=== PATIENT | female | born 1985 | race Caucasian/White ===

== ENCOUNTER 2019-01-15 16:25 | Inpatient (IN) | payer MEDICAID ==
[~2019-01-15] VITALS: Ht 177.8 cm; Wt 109.1 kg
[2019-01-15 16:25] VITALS: BP 144/78
[~2019-01-15 16:25] MED LIST: DOCU-131 PO; IBUP-1222 PO; OXYC-302 PO; PREN1TAB60 PO
[2019-01-15] MEDS ORDERED: OXYTOCIN 30U/ 0.9% NaCL 500ML 500 ML IV ONE (16:35)
[2019-01-15] MEDS: LACTATED RINGERS 1,000 ML IV SCH (16:40)
[2019-01-15] MEDS ORDERED: OXYTOCIN 30U/ 0.9% NaCL 500ML 500 ML ONE ×2 (16:41→18:24)
[2019-01-15] MEDS ORDERED: MISOPROSTOL 200 MCG TABLET ONE (16:41)
[2019-01-15] MEDS ORDERED: NEWBORN KIT ONE (16:41)
[2019-01-15] MEDS ORDERED: LIDOCAINE 1%, 20ML ONE (16:41)
[2019-01-15] MEDS ORDERED: TERBUTALINE 1 MG/ML, 1ML IVPush PRN (17:00)
[2019-01-15] MEDS ORDERED: ONDANSETRON 2MG/ML, 2ML IVPush PRN (17:00)
[2019-01-15] MEDS ORDERED: FENTANYL PF 100 MCG/2ML IV PRN (17:00)
[2019-01-15] MEDS ORDERED: CALCIUM CARBONATE 500 MG TAB.CHEW PO PRN (17:00)
[2019-01-15] MEDS ORDERED: FENTANYL PF 100 MCG/2ML ONE (17:14)
[2019-01-15] MEDS ORDERED: IBUPROFEN 600 MG TABLET ONE (18:15)
[2019-01-15] MEDS ORDERED: OXYcodone/APAP 5/325MG TABLET ONE (18:15)
[2019-01-15] MEDS: IBUPROFEN 600 MG TABLET PO PRN (18:19)
[2019-01-15] MEDS: OXYcodone/APAP 5/325MG TABLET PO PRN ×2 (18:19→22:14)
[2019-01-15] MEDS: OXYTOCIN 30U/ 0.9% NaCL 500ML 500 ML IV SCH (18:29)
[2019-01-15 18:42] LABS: MEAN CORPUSCULAR HEMOGLOBIN 29.9 pg (27.0-34.8); MEAN CORPUSCULAR HGB CONC 33.2 g/dL (32.4-35.8); MEAN CORPUSCULAR VOLUME 90.1 fL (80-100); MEAN PLATELET VOLUME 7.7 fL (7.4-10.4); PLATELET COUNT 310 x10^3/uL (130-400); RED BLOOD COUNT 4.47 x10^6/uL (3.82-5.3); RED CELL DISTRIBUTION WIDTH 14.2 % (9.6-15.2)
[2019-01-15 19:12] LABS: BASOPHILS # (AUTO) 0.04 x10^3/uL (0-0.1); BASOPHILS % (AUTO) 0 % (0-1); EOSINOPHILS # (AUTO) 0.07 x10^3/uL (0-0.4); EOSINOPHILS % (AUTO) 0 % (1-7); LYMPHOCYTES % (AUTO) 5 % (22-44); MD SCAN; MONOCYTES # (AUTO) 0.65 x10^3/uL (0.2-0.8); MONOCYTES % (AUTO) 3 % (2-9); NEUTROPHILS % (AUTO) 91 % (42-75)
[2019-01-15] MEDS ORDERED: FENTANYL PF 100 MCG/2ML IVPush PRN (20:00)
[2019-01-15] MEDS ORDERED: DOCUSATE 100 MG CAPSULE PO PRN (20:00)
[2019-01-15] MEDS ORDERED: MISOPROSTOL 200 MCG TABLET PR PRN (20:00)
[2019-01-15] MEDS ORDERED: HYDROcodone/APAP 5/325 TABLET PO PRN ×2 (20:00)
[2019-01-15 20:15] VITALS: BP 118/67
[2019-01-16] VITALS: BP 101/69
[2019-01-16] MEDS: IBUPROFEN 600 MG TABLET PO PRN ×3 (00:04→12:58)
[2019-01-16] MEDS: LACTATED RINGERS 1,000 ML IV SCH (00:35)
[2019-01-16] MEDS: OXYcodone/APAP 5/325MG TABLET PO PRN ×3 (03:58→12:58)
[2019-01-16 04:00] VITALS: BP 121/68
[2019-01-16 05:23] LABS: BASOPHILS # (AUTO) 0.07 x10^3/uL (0-0.1); BASOPHILS % (AUTO) 0 % (0-1); EOSINOPHILS # (AUTO) 0.14 x10^3/uL (0-0.4); EOSINOPHILS % (AUTO) 1 % (1-7); LYMPHOCYTES % (AUTO) 12 % (22-44); MD NO; MEAN CORPUSCULAR HEMOGLOBIN 29.3 pg (27.0-34.8); MEAN PLATELET VOLUME 7.4 fL (7.4-10.4); MONOCYTES # (AUTO) 1.06 x10^3/uL (0.2-0.8); MONOCYTES % (AUTO) 6 % (2-9); NEUTROPHILS # (AUTO) 13.53 x10^3/uL (1.8-6.8); NEUTROPHILS % (AUTO) 81 % (42-75); PLATELET COUNT 273 x10^3/uL (130-400); RED CELL DISTRIBUTION WIDTH 13.8 % (9.6-15.2)
[2019-01-16] MEDS: OXYTOCIN 30U/ 0.9% NaCL 500ML 500 ML IV SCH ×2 (05:44→15:44)
[2019-01-16] MEDS ORDERED: RHOGAM FROM BLOOD BANK 1 NOTE EA IM/IV ONE (07:00)
[2019-01-16 07:30] VITALS: BP 108/69
[2019-01-16] MEDS ORDERED: PRENATAL VIT/IRON/FA 1 EACH TABLET PO SCH (09:00)
[2019-01-16 12:41] VITALS: BP 111/72
[2019-01-16] MEDS ORDERED: IBUP-1222 PO (15:43)
[2019-01-16 16:30] VITALS: BP 97/62
== END 2019-01-16 17:33 | disposition home or self-care (01) | DRG 807 ==
LOC: LDOP 16:25 → LDIP 16:42 → 2NW 20:05
PROVIDERS: ADMIT Obstetrics & Gynecology; ATTEND Obstetrics & Gynecology
PROC: 10E0XZZ Delivery of Products of Conception, External Approach (ICD-10-PCS; principal; 2019-01-15)
PROC: 0KQM0ZZ Repair Perineum Muscle, Open Approach (ICD-10-PCS; 2019-01-15)
DX: O99.354 Diseases of the nervous system complicating childbirth (principal); Z37.0 Single live birth; O99.62 Diseases of the digestive system complicating childbirth; Z3A.40 40 weeks gestation of pregnancy; Z80.0 Family history of malignant neoplasm of digestive organs; O70.1 Second degree perineal laceration during delivery; Z83.3 Family history of diabetes mellitus; Z80.3 Family history of malignant neoplasm of breast; Z83.79 Family history of other diseases of the digestive system; K90.0 Celiac disease; G43.909 Migraine, unspecified, not intractable, without status migrainosus
CPT/HCPCS: 36415; 85025; 85461; 86850; 86900; G0378; J2790; J3010; J2590; J7120

== ENCOUNTER 2020-05-26 06:23 | Day surgery (SDC) | payer MEDICAID ==
[~2020-05-26] VITALS: Ht 175.3 cm; Wt 94.4 kg
[~2020-05-26 06:23] MED LIST changes: +ENOX100S4 SQ; +FAMO20TA7 PO; +FERR-51 PO
[2020-05-26] MEDS ORDERED: FAMO-79 PO (07:10)
[2020-05-26] MEDS ORDERED: FERR324T5 PO (07:10)
[2020-05-26] MEDS ORDERED: ENOX100S5 SQ (07:10)
[2020-05-26] MEDS ORDERED: ACET-1600 PO (07:11)
[2020-05-26 07:19] VITALS: BP 109/73
[2020-05-26 07:49] LABS: BASOPHILS % (AUTO) 0 % (0-1); EOSINOPHILS % (AUTO) 4 % (1-7); LYMPHOCYTES % (AUTO) 13 % (22-44); MEAN CORPUSCULAR HEMOGLOBIN 25.9 pg (27.0-34.8); MEAN CORPUSCULAR HGB CONC 32.6 g/dL (32.4-35.8); MEAN PLATELET VOLUME 7.3 fL (7.4-10.4); MONOCYTES % (AUTO) 5 % (2-9); NEUTROPHILS % (AUTO) 78 % (42-75); PLATELET COUNT 455 x10^3/uL (130-400); RED BLOOD COUNT 4.56 x10^6/uL (3.82-5.3); RED CELL DISTRIBUTION WIDTH 14.6 % (9.6-15.2)
[2020-05-26 08:16] LABS: MD SCAN
== END 2020-05-26 10:32 | disposition home or self-care (01) ==
LOC: OUT 06:23 → EDSTATUS 09:00 → OUT 10:32
PROVIDERS: ATTEND Internal Medicine Hematology & Oncology
DX: C85.90 Non-Hodgkin lymphoma, unspecified, unspecified site (principal); D69.6 Thrombocytopenia, unspecified; Z86.718 Personal history of other venous thrombosis and embolism; Z88.0 Allergy status to penicillin; Z91.040 Latex allergy status
CPT/HCPCS: 36415; 36573; 38222; 77012; 85025; 85060; 85097; 88237; 88264; 88280; 88305; 88311; 88313; 99156; 99157; C1751; J2250; J3010; J2310

== ENCOUNTER → 2020-06-04 | Outpatient (CLI) | payer MEDICAID ==
[~2020-06-04] MED LIST changes: +ACET-1600 PO; +ENOX100S5 SQ; +FAMO-79 PO; +FERR324T5 PO
== END | disposition home or self-care (01) ==
LOC: PETCFH 07:48
PROVIDERS: ATTEND Internal Medicine Hematology & Oncology
DX: C81.90 Hodgkin lymphoma, unspecified, unspecified site (principal); J98.59 Other diseases of mediastinum, not elsewhere classified
CPT/HCPCS: 78815; A9552

== ENCOUNTER → 2020-06-06 | Outpatient (CLI) | payer MEDICAID | END | disposition home or self-care (01) | LOC: CVU 11:38 | PROVIDERS: ATTEND Internal Medicine Hematology & Oncology | DX: C81.90 Hodgkin lymphoma, unspecified, unspecified site (principal); C85.90 Non-Hodgkin lymphoma, unspecified, unspecified site | CPT/HCPCS: 93306 ==

== ENCOUNTER → 2020-06-10 | Outpatient (CLI) | payer MEDICAID ==
[~2020-06-10] MED LIST changes: +APIX5TAB PO; +LACT1CAP11 PO; +LORA-445 PO; +ONDA4TAB7 PO; +POLY17PO5 PO
== END | disposition home or self-care (01) ==
LOC: CARD 15:24
PROVIDERS: ATTEND Internal Medicine Hematology & Oncology
DX: C85.90 Non-Hodgkin lymphoma, unspecified, unspecified site (principal); C81.90 Hodgkin lymphoma, unspecified, unspecified site
CPT/HCPCS: 94010; 94726; 94729

== ENCOUNTER 2020-06-11 14:11 | Emergency (ER) | payer MEDICAID ==
[~2020-06-11] VITALS: Ht 172.7 cm; Wt 98.7 kg
[~2020-06-11 14:11] MED LIST changes: -APIX5TAB PO; -LACT1CAP11 PO; -LORA-445 PO; -ONDA4TAB7 PO; -POLY17PO5 PO
--- NOTE | 2020-06-11 14:50 | NUR ---
US AT BEDSIDE
--- NOTE | 2020-06-11 14:52 | NUR ---
REPORT FROM BREAK NURSE IRBY. ASSUMED CARE OF PT.
--- NOTE | 2020-06-11 15:00 | NUR ---
PT SITTING UPRIGHT ON ON GURNEY WITH AT BEDSIDE. VSS, NAD. PT DENIES ANY NEEDS AT THIS TIME. CALL LIGHT AND PERSONAL BELONGINGS WITHIN REACH.
--- NOTE | 2020-06-11 16:02 | NUR ---
PT SITTING UPRIGHT ON ON GURNEY WITH AT BEDSIDE. VSS, NAD. PT DENIES ANY NEEDS AT THIS TIME. CALL LIGHT AND PERSONAL BELONGINGS WITHIN REACH.
[2020-06-11 16:20] LABS: BASOPHILS % (AUTO) 0 % (0-1); EOSINOPHILS % (AUTO) 0 % (1-7); LYMPHOCYTES % (AUTO) 10 % (22-44); MEAN CORPUSCULAR HEMOGLOBIN 25.2 pg (27.0-34.8); MEAN CORPUSCULAR HGB CONC 32.1 g/dL (32.4-35.8); MEAN PLATELET VOLUME 8.1 fL (7.4-10.4); MONOCYTES % (AUTO) 6 % (2-9); NEUTROPHILS % (AUTO) 84 % (42-75); PLATELET COUNT 361 x10^3/uL (130-400)
[2020-06-11 16:21] LABS: ALANINE AMINOTRANSFERASE 36 U/L (12-78); ALBUMIN 3.5 g/dL (3.4-5.0); ANION GAP 6 mmol/L (5-15); CHLORIDE 108 mmol/L (98-107)
[2020-06-11 16:23] LABS: MD NO
[2020-06-11 16:25] LABS: ALKALINE PHOSPHATASE 131 U/L (45-117); BILIRUBIN,TOTAL 0.2 mg/dL (0.2-1.0); TOTAL PROTEIN 7.8 g/dL (6.4-8.2)
[2020-06-11] MEDS ORDERED: ONDA4TAB7 PO (16:26)
[2020-06-11] MEDS ORDERED: POLY17PO5 PO (16:26)
[2020-06-11] MEDS ORDERED: APIX5TAB PO (16:26)
[2020-06-11] MEDS ORDERED: LORA-445 PO (16:26)
[2020-06-11] MEDS ORDERED: LACT1CAP11 PO (16:26)
--- NOTE | 2020-06-11 17:05 | NUR ---
Patient given discharge instructions and they have confirmed that they understand the instructions. Patient ambulatory with steady gait.
[2020-06-11 17:06] VITALS: BP 117/62
== END 2020-06-11 17:08 | disposition home or self-care (01) ==
LOC: ED 16:03
DX: I82.A12 Acute embolism and thrombosis of left axillary vein (principal); I82.B12 Acute embolism and thrombosis of left subclavian vein; Z86.718 Personal history of other venous thrombosis and embolism
CPT/HCPCS: 36415; 71045; 80053; 84703; 85025; 99285

== ENCOUNTER 2020-10-10 08:15 | Inpatient (IN) | payer MEDICAID, OTHER ==
[2020-10-09 11:15] LABS: BASOPHILS % (AUTO) 1 % (0-1); EOSINOPHILS % (AUTO) 3 % (1-7); LYMPHOCYTES % (AUTO) 24 % (22-44); MEAN CORPUSCULAR HEMOGLOBIN 29.1 pg (27.0-34.8); MEAN CORPUSCULAR HGB CONC 33.5 g/dL (32.4-35.8); MEAN PLATELET VOLUME 7.1 fL (7.4-10.4); MONOCYTES % (AUTO) 17 % (2-9); NEUTROPHILS % (AUTO) 55 % (42-75); PLATELET COUNT 410 x10^3/uL (130-400); RED BLOOD COUNT 4.43 x10^6/uL (3.82-5.3); RED CELL DISTRIBUTION WIDTH 15.8 % (9.6-15.2)
[2020-10-09 11:27] LABS: ALBUMIN 3.9 g/dL (3.4-5.0); ANION GAP 5 mmol/L (5-15); CALCIUM 9.2 mg/dL (8.5-10.1); CHLORIDE 115 mmol/L (98-107)
[2020-10-09 11:31] LABS: ALANINE AMINOTRANSFERASE 139 U/L (12-78); ALKALINE PHOSPHATASE 75 U/L (45-117); BILIRUBIN,TOTAL 0.3 mg/dL (0.2-1.0); CREATININE 0.72 mg/dL (0.55-1.02); TOTAL PROTEIN 7.6 g/dL (6.4-8.2)
[2020-10-09 12:00] LABS: MD SCAN
[~2020-10-10] VITALS: Ht 172.7 cm; Wt 108.9 kg
[~2020-10-10 08:15] MED LIST changes: +APIX5TAB PO; +BUPIVACAINE/PF-EPI 0.5% 1:200K ONE; +LACT1CAP11 PO; +LORA-445 PO; +MAGNESIUM PO; +MULT-658 PO; +ONDA4TAB7 PO; -OXYC-302 PO; +OXYC1TAB14 PO; +OXYC5CAP2 PO; +POLY17PO5 PO
[2020-10-10] MEDS ORDERED: FAMOTIDINE 20 MG TABLET PO ONE (09:00)
[2020-10-10] MEDS ORDERED: CHLORHEXIDINE 15 ML UDC ONE (09:11)
[2020-10-10 09:25] LABS: HCG UR SG 1.009 (1.003-1.030)
[2020-10-10] MEDS ORDERED: CHLORHEXIDINE 15 ML UDC MM ONE (09:30)
[2020-10-10] MEDS: LACTATED RINGERS 1,000 ML IV SCH ×2 (09:31→22:48)
[2020-10-10] MEDS ORDERED: MIDAZOLAM 1 MG/ML, 2ML ONE (09:46)
[2020-10-10] MEDS ORDERED: FENTANYL PF 100 MCG/2ML ONE ×4 (09:46→12:22)
[2020-10-10] MEDS ORDERED: TALC 4 GM VIAL ONE (10:33)
[2020-10-10] MEDS ORDERED: BUPIVACAINE/PF 0.5% ONE (10:33)
[2020-10-10] MEDS ORDERED: EPINEPHRINE 1 MG/ML, 1ML ONE (10:33)
[2020-10-10] MEDS ORDERED: HYDROcodone/APAP 7.5-325MG/15ML UDC PO PRN (11:30)
[2020-10-10] MEDS ORDERED: KETOROLAC 30 MG/1 ML IVPush PRN (11:30)
[2020-10-10] MEDS ORDERED: MEPERIDINE/PF 25MG/0.5ML IVPush PRN (11:30)
[2020-10-10] MEDS ORDERED: ACETAMINOPHEN 325 MG TABLET PO PRN (11:30)
[2020-10-10] MEDS ORDERED: HYDROmorphone 1 MG/ML, 1ML INJ IVPush PRN (11:30)
[2020-10-10] MEDS ORDERED: OXYcodone 5 MG/5 ML ORAL.SOL UDC PO PRN (11:30)
[2020-10-10] MEDS ORDERED: ONDANSETRON 2MG/ML, 2ML IVPush PRN (11:30)
[2020-10-10] MEDS ORDERED: PROMETHAZINE 25 MG/ML, 1ML IVPush PRN (11:30)
[2020-10-10] MEDS ORDERED: NEOSTIGMINE 1 MG/ML, 10ML ONE (11:49)
[2020-10-10] MEDS ORDERED: GLYCOPYRROLATE 0.2MG/1ML, 5ML ONE (11:49)
[2020-10-10] MEDS ORDERED: SUCCINYLCHOLINE 20 MG/ML, 10ML ONE (11:49)
[2020-10-10] MEDS ORDERED: PROPOFOL 10 MG/ML, 20ML ONE (11:49)
[2020-10-10] MEDS ORDERED: ONDANSETRON 2MG/ML, 2ML ONE (11:49)
[2020-10-10] MEDS ORDERED: CEFAZOLIN 1,000 MG ONE (11:49)
[2020-10-10] MEDS ORDERED: ROCURONIUM 10MG/ML,5ML ONE (11:49)
[2020-10-10] MEDS ORDERED: LORazepam 2 MG/ML, 1ML IV PRN (12:00)
[2020-10-10] MEDS ORDERED: HYDROcodone/APAP 5/325 TABLET PO PRN (12:00)
[2020-10-10] MEDS ORDERED: HYDROmorphone 2 MG/ML, 1ML IVPush PRN (12:00)
[2020-10-10] MEDS ORDERED: DIPHENHYDRAMINE 25 MG CAPSULE PO PRN (12:00)
[2020-10-10] MEDS: FENTANYL PF 100 MCG/2ML IV PRN ×4 (12:00→12:40)
[2020-10-10] MEDS ORDERED: ACETAMINOPHEN 650 MG/20.3 ML UDC ONE (12:03)
[2020-10-10] MEDS ORDERED: OXYcodone 5 MG/5 ML ORAL.SOL UDC ONE (12:04)
[2020-10-10] MEDS ORDERED: HYDROmorphone 1 MG/ML, 1ML INJ ONE (12:54)
[2020-10-10] MEDS ORDERED: ACETAMINOPHEN 500 MG TABLET PO PRN ×2 (15:00→15:30)
[2020-10-10] MEDS ORDERED: DEXAMETHASONE 4 MG/ML, 1ML ONE (15:59)
[2020-10-10] MEDS ORDERED: PHENYLEPHRINE 10 MG/ML ONE (15:59)
[2020-10-10] MEDS: HYDROmorphone 1 MG/ML, 1ML INJ IVPush PRN ×4 (17:47→22:36)
[2020-10-10] MEDS: KETOROLAC 30 MG/1 ML IV PRN (18:48)
[2020-10-10 19:05] VITALS: BP 120/79
[2020-10-10] MEDS: ENOXAPARIN 100 MG/ML SQ SCH (20:04)
[2020-10-10] MEDS: LACTOBACILLUS CHEW TABLET PO SCH (20:04)
[2020-10-10] MEDS ORDERED: Enoxaparin 1 mg/kg protocol SQ SCH (21:00)
[2020-10-10] MEDS: OXYcodone IR 5MG TABLET PO PRN (21:37)
[2020-10-10] MEDS: ONDANSETRON 2MG/ML, 2ML IVPush PRN (21:37)
[2020-10-11] MEDS: HYDROmorphone 1 MG/ML, 1ML INJ IVPush PRN ×9 (01:00→22:37)
[2020-10-11 01:12] VITALS: BP 113/75
[2020-10-11] MEDS: ONDANSETRON 2MG/ML, 2ML IVPush PRN ×2 (03:13→16:26)
[2020-10-11] MEDS ORDERED: CATHFLO-ALTEPLASE 2 MG/2 ML CATHFLUSH ONE ×3 (05:00→17:30)
[2020-10-11 05:57] LABS: BASOPHILS % (AUTO) 1 % (0-1); EOSINOPHILS % (AUTO) 0 % (1-7); LYMPHOCYTES % (AUTO) 9 % (22-44); MEAN CORPUSCULAR HEMOGLOBIN 29.7 pg (27.0-34.8); MEAN PLATELET VOLUME 7.5 fL (7.4-10.4); MONOCYTES % (AUTO) 11 % (2-9); NEUTROPHILS % (AUTO) 79 % (42-75); PLATELET COUNT 330 x10^3/uL (130-400); RED BLOOD COUNT 3.05 x10^6/uL (3.82-5.3); RED CELL DISTRIBUTION WIDTH 15.8 % (9.6-15.2)
[2020-10-11 06:12] LABS: ANION GAP 5 mmol/L (5-15); CALCIUM 8.4 mg/dL (8.5-10.1); CHLORIDE 105 mmol/L (98-107); CREATININE 0.81 mg/dL (0.55-1.02)
[2020-10-11] MEDS: OXYcodone IR 5MG TABLET PO PRN ×3 (07:04→20:55)
[2020-10-11 07:16] LABS: MD SCAN
[2020-10-11 07:27] VITALS: BP 92/69
[2020-10-11] MEDS: KETOROLAC 30 MG/1 ML IV PRN ×4 (07:40→23:56)
[2020-10-11 08:51] LABS: MEAN CORPUSCULAR HEMOGLOBIN 29.2 pg (27.0-34.8); MEAN PLATELET VOLUME 7.6 fL (7.4-10.4); PLATELET COUNT 388 x10^3/uL (130-400); RED BLOOD COUNT 3.06 x10^6/uL (3.82-5.3); RED CELL DISTRIBUTION WIDTH 16.1 % (9.6-15.2)
[2020-10-11] MEDS: LACTOBACILLUS CHEW TABLET PO SCH ×2 (09:00→20:11)
[2020-10-11] MEDS: FERROUS SULFATE 325 MG TABLET PO SCH (09:00)
[2020-10-11] MEDS: ENOXAPARIN 100 MG/ML SQ SCH (09:00)
[2020-10-11] MEDS: POLYETHYLENE GLYCOL 17 GM PACKET PO SCH ×2 (09:00→20:50)
[2020-10-11] MEDS: MULTIVITAMIN 1 TABLET PO SCH (09:00)
[2020-10-11 09:27] LABS: MD YES
[2020-10-11 09:35] LABS: BAND#(MANUAL) 0.96 x10^3/uL; BANDS%(MANUAL) 5 % (0-7); BASOS#(MANUAL) 0.19 x10^3/uL (0-0.1); BASOS% (MANUAL) 1 % (0-1); LYMPH#(MANUAL) 1.15 x10^3/uL (1-3.4); LYMPHS% (MANUAL) 6 % (22-44); METAMYELOCYTES# (MANUAL) 0.38 x10^3/uL (0-0); METAMYELOCYTES% (MANUAL) 2 % (0-1); MONOS#(MANUAL) 1.34 x10^3/uL (0.3-2.7); MONOS% (MANUAL) 7 % (2-9); SEG#(MANUAL) 15.17 x10^3/uL (1.8-6.8); SEGS% (MANUAL) 79 % (42-75)
[2020-10-11 09:36] LABS: <PLATELET ESTIMATE> ADEQUATE; <PLT MORPHOLOGY> NORMAL PLT MORPH; ANISOCYTOSIS 1+; POLYCHROMASIA 1+
[2020-10-11] MEDS ORDERED: BUPIVACAINE/PF 0.5% ONE (09:41)
[2020-10-11] MEDS ORDERED: EPINEPHRINE 1 MG/ML, 1ML ONE (09:41)
[2020-10-11] MEDS ORDERED: MIDAZOLAM 1 MG/ML, 2ML ONE (09:50)
[2020-10-11] MEDS ORDERED: FENTANYL PF 100 MCG/2ML ONE ×2 (09:50→11:22)
[2020-10-11] MEDS ORDERED: BUPIVACAINE/PF-EPI 0.5% 1:200K INFIL ONE (10:41)
[2020-10-11] MEDS ORDERED: MEPERIDINE/PF 25MG/ML,1ML ONE (11:16)
[2020-10-11] MEDS ORDERED: OXYcodone 5 MG/5 ML ORAL.SOL UDC ONE (11:22)
[2020-10-11] MEDS: FENTANYL PF 100 MCG/2ML IV PRN ×2 (11:28→11:40)
[2020-10-11] MEDS ORDERED: EPHEDRINE 50 MG/ML, 1ML IVPush PRN (11:30)
[2020-10-11] MEDS ORDERED: MEPERIDINE/PF 25MG/0.5ML IVPush PRN (11:30)
[2020-10-11] MEDS ORDERED: ONDANSETRON 2MG/ML, 2ML IVPush PRN (11:30)
[2020-10-11] MEDS ORDERED: PROMETHAZINE 25 MG/ML, 1ML IVPush PRN (11:30)
[2020-10-11] MEDS ORDERED: OXYcodone 5 MG/5 ML ORAL.SOL UDC PO PRN (11:30)
[2020-10-11] MEDS ORDERED: DIAZEPAM 5 MG/ML, 2ML IVPush PRN (11:30)
[2020-10-11] MEDS ORDERED: DIPHENHYDRAMINE 50 MG/ML, 1ML IVPush PRN (11:30)
[2020-10-11] MEDS ORDERED: ACETAMINOPHEN 325 MG TABLET PO PRN (11:30)
[2020-10-11] MEDS ORDERED: HYDROmorphone 2 MG/ML, 1ML ONE (11:47)
[2020-10-11] MEDS ORDERED: KETOROLAC 30 MG/1 ML ONE (12:08)
[2020-10-11 12:15] LABS: MEAN CORPUSCULAR HEMOGLOBIN 29.1 pg (27.0-34.8); MEAN CORPUSCULAR HGB CONC 32.9 g/dL (32.4-35.8); MEAN PLATELET VOLUME 7.5 fL (7.4-10.4); PLATELET COUNT 361 x10^3/uL (130-400); RED BLOOD COUNT 2.64 x10^6/uL (3.82-5.3); RED CELL DISTRIBUTION WIDTH 16.1 % (9.6-15.2)
[2020-10-11 12:20] LABS: MD YES
[2020-10-11 12:48] VITALS: BP 101/71
[2020-10-11 12:50] LABS: <PLATELET ESTIMATE> ADEQUATE; <PLT MORPHOLOGY> NORMAL PLT MORPH; ANISOCYTOSIS 1+; BAND#(MANUAL) 0.54 x10^3/uL; BANDS%(MANUAL) 3 % (0-7); BASOS#(MANUAL) 0.36 x10^3/uL (0-0.1); BASOS% (MANUAL) 2 % (0-1); LYMPH#(MANUAL) 1.25 x10^3/uL (1-3.4); LYMPHS% (MANUAL) 7 % (22-44); MONOS#(MANUAL) 1.61 x10^3/uL (0.3-2.7); MONOS% (MANUAL) 9 % (2-9); MYELOCYTES# (MANUAL) 0.18 x10^3/uL (0-0); MYELOCYTES% (MANUAL) 1 % (0-0); POLYCHROMASIA 1+; SEG#(MANUAL) 13.96 x10^3/uL (1.8-6.8); SEGS% (MANUAL) 78 % (42-75)
[2020-10-11 16:11] LABS: MEAN CORPUSCULAR HEMOGLOBIN 29.2 pg (27.0-34.8); MEAN CORPUSCULAR HGB CONC 33.5 g/dL (32.4-35.8); MEAN PLATELET VOLUME 7.5 fL (7.4-10.4); PLATELET COUNT 408 x10^3/uL (130-400); RED BLOOD COUNT 2.84 x10^6/uL (3.82-5.3); RED CELL DISTRIBUTION WIDTH 16.1 % (9.6-15.2)
[2020-10-11] MEDS ORDERED: PROPOFOL 10 MG/ML, 20ML ONE (16:22)
[2020-10-11] MEDS ORDERED: SUGAMMADEX 200 MG/2 ML IVPush ONE (16:22)
[2020-10-11] MEDS ORDERED: SUCCINYLCHOLINE 20 MG/ML, 10ML ONE (16:22)
[2020-10-11] MEDS ORDERED: CEFAZOLIN 1,000 MG ONE (16:22)
[2020-10-11] MEDS ORDERED: ROCURONIUM 10MG/ML,5ML ONE (16:22)
[2020-10-11] MEDS ORDERED: PHENYLEPHRINE 10 MG/ML ONE (16:22)
[2020-10-11] MEDS ORDERED: ONDANSETRON 2MG/ML, 2ML ONE (16:22)
[2020-10-11] MEDS ORDERED: DEXAMETHASONE 4 MG/ML, 1ML ONE (16:22)
[2020-10-11 16:46] LABS: MD YES
[2020-10-11 16:48] LABS: ANISOCYTOSIS 1+; BAND#(MANUAL) 0.94 x10^3/uL; BANDS%(MANUAL) 4 % (0-7); LYMPHS% (MANUAL) 3 % (22-44); METAMYELOCYTES# (MANUAL) 0.23 x10^3/uL (0-0); METAMYELOCYTES% (MANUAL) 1 % (0-1); MONOS#(MANUAL) 0.94 x10^3/uL (0.3-2.7); MONOS% (MANUAL) 4 % (2-9); SEG#(MANUAL) 20.59 x10^3/uL (1.8-6.8); SEGS% (MANUAL) 88 % (42-75)
[2020-10-11 16:49] LABS: <PLATELET ESTIMATE> INCREASED; <PLT MORPHOLOGY> NORMAL PLT MORPH
[2020-10-11] MEDS ORDERED: SIMETHICONE 80 MG CHEW TAB PO PRN ×2 (17:30)
[2020-10-11 20:31] VITALS: BP 98/67
[2020-10-12] VITALS (10 sets, daily range): BP systolic 95–114; BP diastolic 58–74
[2020-10-12] MEDS: OXYcodone IR 5MG TABLET PO PRN ×6 (00:53→19:45)
[2020-10-12 05:48] LABS: MEAN CORPUSCULAR HEMOGLOBIN 29.7 pg (27.0-34.8); MEAN CORPUSCULAR HGB CONC 34.1 g/dL (32.4-35.8); MEAN PLATELET VOLUME 7.6 fL (7.4-10.4); PLATELET COUNT 314 x10^3/uL (130-400); RED BLOOD COUNT 2.07 x10^6/uL (3.82-5.3); RED CELL DISTRIBUTION WIDTH 15.9 % (9.6-15.2)
[2020-10-12 06:56] LABS: MD YES
[2020-10-12] MEDS ORDERED: LACTATED RINGERS 500 ML IVBOLUS ONE (07:00)
[2020-10-12 07:15] LABS: BAND#(MANUAL) 0.42 x10^3/uL; BANDS%(MANUAL) 2 % (0-7); LYMPH#(MANUAL) 2.08 x10^3/uL (1-3.4); LYMPHS% (MANUAL) 10 % (22-44); METAMYELOCYTES# (MANUAL) 0.21 x10^3/uL (0-0); METAMYELOCYTES% (MANUAL) 1 % (0-1); MONOS#(MANUAL) 1.04 x10^3/uL (0.3-2.7); MONOS% (MANUAL) 5 % (2-9); SEG#(MANUAL) 17.06 x10^3/uL (1.8-6.8); SEGS% (MANUAL) 82 % (42-75)
[2020-10-12 07:16] LABS: <PLATELET ESTIMATE> ADEQUATE; <PLT MORPHOLOGY> NORMAL PLT MORPH; ANISOCYTOSIS 1+
[2020-10-12] MEDS: HYDROmorphone 1 MG/ML, 1ML INJ IVPush PRN ×3 (07:39→16:50)
[2020-10-12] MEDS: ONDANSETRON 2MG/ML, 2ML IVPush PRN (07:52)
[2020-10-12] MEDS: FERROUS SULFATE 325 MG TABLET PO SCH (08:55)
[2020-10-12] MEDS: MULTIVITAMIN 1 TABLET PO SCH (08:55)
[2020-10-12] MEDS: LACTOBACILLUS CHEW TABLET PO SCH ×2 (08:55→20:53)
[2020-10-12] MEDS: POLYETHYLENE GLYCOL 17 GM PACKET PO SCH (08:55)
[2020-10-12] MEDS: KETOROLAC 30 MG/1 ML IV PRN ×2 (10:59→22:38)
[2020-10-12 17:59] LABS: MEAN CORPUSCULAR HGB CONC 34.1 g/dL (32.4-35.8); MEAN PLATELET VOLUME 7.6 fL (7.4-10.4); PLATELET COUNT 258 x10^3/uL (130-400); RED BLOOD COUNT 2.61 x10^6/uL (3.82-5.3); RED CELL DISTRIBUTION WIDTH 15.9 % (9.6-15.2)
[2020-10-12 18:32] LABS: MD YES
[2020-10-12 18:38] LABS: BAND#(MANUAL) 0.42 x10^3/uL; BANDS%(MANUAL) 3 % (0-7); BASOS#(MANUAL) 0.14 x10^3/uL (0-0.1); BASOS% (MANUAL) 1 % (0-1); EOS#(MANUAL) 0.14 x10^3/uL (0.0-0.4); EOS% (MANUAL) 1 % (1-7); LYMPH#(MANUAL) 3.08 x10^3/uL (1-3.4); LYMPHS% (MANUAL) 22 % (22-44); METAMYELOCYTES# (MANUAL) 0.28 x10^3/uL (0-0); METAMYELOCYTES% (MANUAL) 2 % (0-1); MONOS#(MANUAL) 0.56 x10^3/uL (0.3-2.7); MONOS% (MANUAL) 4 % (2-9); MYELOCYTES# (MANUAL) 0.14 x10^3/uL (0-0); MYELOCYTES% (MANUAL) 1 % (0-0); SEG#(MANUAL) 9.24 x10^3/uL (1.8-6.8); SEGS% (MANUAL) 66 % (42-75)
[2020-10-12 18:39] LABS: <PLATELET ESTIMATE> ADEQUATE; <PLT MORPHOLOGY> NORMAL PLT MORPH; ANISOCYTOSIS 1+
[2020-10-13] MEDS: HYDROmorphone 1 MG/ML, 1ML INJ IVPush PRN (00:30)
[2020-10-13 02:30] VITALS: BP 100/64
[2020-10-13] MEDS: OXYcodone IR 5MG TABLET PO PRN ×3 (04:28→13:49)
[2020-10-13] MEDS ORDERED: CATHFLO-ALTEPLASE 2 MG/2 ML CATHFLUSH ONE ×2 (05:10→08:00)
[2020-10-13 05:30] LABS: MEAN CORPUSCULAR HEMOGLOBIN 30.2 pg (27.0-34.8); MEAN CORPUSCULAR HGB CONC 34.2 g/dL (32.4-35.8); MEAN PLATELET VOLUME 7.9 fL (7.4-10.4); PLATELET COUNT 242 x10^3/uL (130-400); RED BLOOD COUNT 2.53 x10^6/uL (3.82-5.3); RED CELL DISTRIBUTION WIDTH 15.9 % (9.6-15.2)
[2020-10-13 06:10] LABS: MD YES
[2020-10-13 06:12] LABS: BAND#(MANUAL) 0.41 x10^3/uL; BANDS%(MANUAL) 3 % (0-7); BASOS#(MANUAL) 0.27 x10^3/uL (0-0.1); BASOS% (MANUAL) 2 % (0-1); EOS#(MANUAL) 0.41 x10^3/uL (0.0-0.4); EOS% (MANUAL) 3 % (1-7); LYMPH#(MANUAL) 2.57 x10^3/uL (1-3.4); LYMPHS% (MANUAL) 19 % (22-44); METAMYELOCYTES# (MANUAL) 0.27 x10^3/uL (0-0); METAMYELOCYTES% (MANUAL) 2 % (0-1); MONOS#(MANUAL) 1.22 x10^3/uL (0.3-2.7); MONOS% (MANUAL) 9 % (2-9); MYELOCYTES# (MANUAL) 0.27 x10^3/uL (0-0); MYELOCYTES% (MANUAL) 2 % (0-0); SEGS% (MANUAL) 60 % (42-75)
[2020-10-13 06:13] LABS: <PLATELET ESTIMATE> ADEQUATE; <PLT MORPHOLOGY> NORMAL PLT MORPH; ANISOCYTOSIS 1+; POLYCHROMASIA 1+
[2020-10-13 07:00] VITALS: BP 100/64
[2020-10-13] MEDS: MULTIVITAMIN 1 TABLET PO SCH (08:45)
[2020-10-13] MEDS: POLYETHYLENE GLYCOL 17 GM PACKET PO SCH (08:46)
[2020-10-13] MEDS: LACTOBACILLUS CHEW TABLET PO SCH (08:46)
[2020-10-13] MEDS: FERROUS SULFATE 325 MG TABLET PO SCH (08:46)
[2020-10-13] MEDS ORDERED: ENOXAPARIN 120MG/0.8ML SQ SCH (09:00)
[2020-10-13] MEDS ORDERED: Enoxaparin 1 mg/kg protocol SQ SCH (09:00)
[2020-10-13] MEDS ORDERED: ENOXAPARIN 100 MG/ML SQ SCH ×2 (09:30→21:00)
[2020-10-13 10:56] LABS: MEAN CORPUSCULAR HEMOGLOBIN 29.8 pg (27.0-34.8); MEAN CORPUSCULAR HGB CONC 33.9 g/dL (32.4-35.8); MEAN PLATELET VOLUME 7.9 fL (7.4-10.4); PLATELET COUNT 276 x10^3/uL (130-400); RED BLOOD COUNT 2.57 x10^6/uL (3.82-5.3)
[2020-10-13 11:28] LABS: MD YES
[2020-10-13 11:29] LABS: <PLATELET ESTIMATE> ADEQUATE; <PLT MORPHOLOGY> NORMAL PLT MORPH; EOS#(MANUAL) 0.44 x10^3/uL (0.0-0.4); EOS% (MANUAL) 3 % (1-7); LYMPH#(MANUAL) 2.81 x10^3/uL (1-3.4); LYMPHS% (MANUAL) 19 % (22-44); METAMYELOCYTES# (MANUAL) 0.15 x10^3/uL (0-0); METAMYELOCYTES% (MANUAL) 1 % (0-1); MONOS#(MANUAL) 1.78 x10^3/uL (0.3-2.7); MONOS% (MANUAL) 12 % (2-9); MYELOCYTES# (MANUAL) 0.15 x10^3/uL (0-0); MYELOCYTES% (MANUAL) 1 % (0-0); SEG#(MANUAL) 9.47 x10^3/uL (1.8-6.8); SEGS% (MANUAL) 64 % (42-75)
[2020-10-13 11:30] LABS: ANISOCYTOSIS 1+
[2020-10-13 13:50] VITALS: BP 118/79
== END 2020-10-13 14:30 | disposition home or self-care (01) | DRG 821 ==
LOC: ORIP 08:15 → 4NW 13:45 → DCLOUNGE 10-13 14:20
PROVIDERS: ADMIT Thoracic Surgery (Cardiothoracic Vascular Surgery); ATTEND Thoracic Surgery (Cardiothoracic Vascular Surgery)
PROC: 0WBC4ZX Excision of Mediastinum, Percutaneous Endoscopic Approach, Diagnostic (ICD-10-PCS; principal; 2020-10-10 10:30)
PROC: 0W9 Anatomical Regions, General, Drainage (ICD-10-PCS; 2020-10-11)
DX: C81.90 Hodgkin lymphoma, unspecified, unspecified site (principal); J94.2 Hemothorax; I95.9 Hypotension, unspecified; Z20.822 Contact with and (suspected) exposure to COVID-19; Z92.21 Personal history of antineoplastic chemotherapy
CPT/HCPCS: 36415; S0020; 71045; 80048; 80053; 81025; 85025; 86850; 86900; 86923; 88305; 88341; 88342; 93005; C1729; G0378; J0171; J0690; J1100; J1170; J1650; J1885; J2175; J2250; J2405; J2704; J2710; J2997; J3010; J7120; J0330; J2060; J2370; P9016; U0003

== ENCOUNTER → 2020-12-08 | Outpatient (CLI) | payer MEDICAID ==
[~2020-12-08] MED LIST changes: -BUPIVACAINE/PF-EPI 0.5% 1:200K ONE
== END | disposition home or self-care (01) ==
LOC: CVU 08:16
DX: C81.12 Nodular sclerosis Hodgkin lymphoma, intrathoracic lymph nodes (principal); I08.1 Rheumatic disorders of both mitral and tricuspid valves
CPT/HCPCS: 93306; 93356

== ENCOUNTER 2020-12-17 09:09 | Outpatient (CLI) | payer MEDICAID | END 2020-12-17 23:59 | disposition home or self-care (01) | LOC: RAD 09:09 | PROVIDERS: ATTEND Internal Medicine Hematology & Oncology | DX: Z45.2 Encounter for adjustment and management of vascular access device (principal); C81.90 Hodgkin lymphoma, unspecified, unspecified site | CPT/HCPCS: 36573; C1751; 77001 ==

== ENCOUNTER → 2020-12-17 | Outpatient (CLI) | payer MEDICAID | END | disposition home or self-care (01) | LOC: STAR 09:14 | DX: Z01.818 Encounter for other preprocedural examination (principal); C81.90 Hodgkin lymphoma, unspecified, unspecified site; I49.8 Other specified cardiac arrhythmias | CPT/HCPCS: 93005 ==